=== PATIENT | female | born 1965 ===

== ENCOUNTER 2017-07-19 06:03 | Day surgery (SDC) | payer OTHER ==
[2017-07-11 09:39] VITALS: BMI 28.5
[2017-07-19] MEDS ORDERED: Lactated Ringer's 1,000 ML IV ONE (07:10)
[2017-07-19] MEDS ORDERED: ePHEDrine 50 mg/ml Inj ONE (07:15)
[2017-07-19] MEDS ORDERED: Propofol 10 mg/ml Inj (20 ML) ONE (07:15)
[2017-07-19] MEDS ORDERED: Rocuronium 10 mg/ml (5 ml) ONE (07:15)
[2017-07-19] MEDS ORDERED: Midazolam 2 MG/2 ML VIAL ONE (07:15)
[2017-07-19] MEDS ORDERED: Succinylcholine 200 mg/10 ml Inj IV ONE (07:16)
[2017-07-19] MEDS ORDERED: Lidocaine 2% MPF (5 ml) Inj ONE (07:16)
[2017-07-19] MEDS ORDERED: Phenylephrine 10 mg/ml Inj ONE (07:16)
[2017-07-19] MEDS ORDERED: Desflurane Inhalation Anesthetic Liq (240 ml) ONE (07:29)
[2017-07-19] MEDS ORDERED: ceFAZolin IV 1 gm in Dextrose 1 GM/50 ML BAG IVPB ONE ×2 (07:47→08:22)
[2017-07-19] MEDS ORDERED: Lidocaine 2% w Epi 1:100,000 Inj IJ ONE (07:47)
[2017-07-19] MEDS ORDERED: Morphine 1 mg/ml preservative-free Inj(Duramorph) ONE (09:33)
[2017-07-19] MEDS ORDERED: Sodium Chloride 0.45% 1,000 ML IV ONE (09:50)
--- NOTE | 2017-07-19 10:23 | PCM.SURG1 ---
Surgeon's Initial Post Op Note - Surgeon's Notes Surgeon: Dung Fischer MD Blocker Automatic: Milan Mcnally MD; Laura Ragsdale PA-C Type of Anesthesia: General LMA Pre-Operative Diagnosis: Right knee ACL tear Operative Findings: see op report Post-Operative Diagnosis: Same as pre-op dx Operation Performed: Right knee arthroscopy, ACL Reconstruction w/allograft Specimen/Specimens Removed: none Estimated Blood Loss: EBL {In ML}: 15 Date of Surgery/Procedure: 07/19/17 Time of Surgery/Procedure: 15:00
[2017-07-19] MEDS ORDERED: HYDROmorphone 0.5 mg/0.5 ml ISec IVP PRN (10:24)
[2017-07-19] MEDS ORDERED: Oxycodone/Acetaminophen 5/325 mg Tab PO PRN (10:25)
[2017-07-19] MEDS: HYDROmorphone 0.5 mg/0.5 ml ISec IVP PRN ×2 (10:55→11:15)
[2017-07-19 12:45] VITALS: RESP 18
[2017-07-19] MEDS ORDERED: Dexamethasone 4 mg/1 ml IM ONE (14:16)
[2017-07-19] MEDS ORDERED: Dexamethasone 4 MG in Sodium Chloride 0.9% 50 ML IV ONE (14:20)
[2017-07-19] MEDS ORDERED: Dexamethasone 4 mg/1 ml IVP ONE (14:41)
--- NOTE | 2017-07-19 15:06 | OP ---
PROCEDURE DATE: 07/19/2017 ATTENDING PHYSICIAN: Dung Fischer MD. MEDICATION TECH: Milan Mcnally MD. PREOPERATIVE DIAGNOSES: 1. Right knee complete anterior cruciate ligament tear. 2. Synovitis. 3. Effusion. POSTOPERATIVE DIAGNOSES: 1. Right knee tri-compartmental synovitis. 2. Complete anterior cruciate ligament tear. 3. Tear of the posterior horn medial meniscus. 4. Anterior patellofemoral adhesions. 5. Grade 2 chondromalacia of the trochlea. PROCEDURES: 1. Right knee arthroscopy with all-inside anterior cruciate ligament reconstruction using Allograft. 2. Partial meniscectomy of medial meniscus. 3. Major synovectomy of all 3 compartments. 4. Chondroplasty of the trochlea. 5. Anterior patellofemoral adhesions. ESTIMATED BLOOD LOSS: 10 mL. SPECIMENS: None. CLOSURE: Primary. FLUIDS: See anesthesia sheet. COMPLICATIONS: None. INDICATIONS: After failing a course of nonoperative therapy, the patient elected to undergo the above procedure. In the office, the risks and possible complications of knee arthroscopy were discussed in detail with the patient. These risks include, but are not limited to continued pain, lack of motion, infection, vascular injury, DVT/PE, nerve injury including peroneal nerve dysfunction, reflex sympathetic dystrophy, compartment syndrome, unforeseen medical and/or anesthesia complications, limb loss, and even . The patient expressed an understanding of the risks and possible benefits of the procedure, and is also aware of the alternatives to surgery. An informed consent was obtained, and was checked immediately preop. The patient was correctly identified in the holding area and the right knee was marked with the surgeon's initials. The patient was transported to the operating room and placed in the supine position, general anesthesia was obtained. A preoperative orthopedic exam revealed effusion of 1+, range of motion of 0 to 110, grade 2B Greer test, posterior anterior drawer test. The lower extremity was prepped and draped in the standard fashion, and the thigh was placed in an arthroscopic leg walter. A well-padded tourniquet was applied to the patient's thigh. Timeout was completed confirming the correct operative site. Esmarch was used to exsanguinate the leg and tourniquet was inflated to 300 mmHg. A standard anterolateral viewing portals were made with a #11 blade after subdermal 1% lidocaine with epinephrine injection. The knee was distended with normal saline and epinephrine in a 1:1,000,000 mixture, at an initial pressure of 35 mmHg. The arthroscope was inserted from the anterolateral portal and moved into the medial compartment. Next, the anteromedial working portal was made with spinal needle localization. The arthroscopic probe was inserted, and all compartments of the knee were sequentially visualized. FINDINGS: Arthroscopic examination of the knee revealed: 1. Complete ACL tear. 2. Complete major synovitis of all 3 compartments. 3. Tear of the posterior horn medial meniscus. 4. Grade 2 chondromalacia of the patella. 5. Anterior patellofemoral adhesions. ACL and PCL were examined and showed a complete ACL tear. The patient had elected to proceed with use of Allograft for ACL reconstruction. The graft was opened and thawed on the back table. Quality of allograft was assessed and was found to satisfactory for use. It was prepared and tensioned in standard manner for later use in ACL reconstruction. ACL reconstruction was performed using all-inside technique. The ACL stump was debrided and removed from the lateral femoral condyle and tibial insertion using a motorized shaver and the anatomic footprint was identified for drilling of femoral and tibial tunnels. We utilized accessory anteromedial portal to place an anatomic femoral tunnel. An [id number] guide was used to drill the Beath pin into the lateral femoral condyle and the positioning of the Beath was critically assessed before proceeding to the drilling of the tunnel. Then using the low profile reamer, a 10 x 25 mm femoral tunnel was drilled in its near anatomic position. Next, using the tibial guide, the anatomic footprint was identified and a flip-cutter pin was drilled for tibial tunnel. Using flip-cutter, tibial tunnel was drilled in retrograde manner. For graft passage, sutures were used and the graft was passed from anatomic portal into the femoral tunnel. For femoral fixation, we utilized metal cortical button. The cortical button was flipped on the far cortex of the femur, the graft was pulled into the femoral tunnel using the loose suture and its secure fixation was confirmed by pulling on the graft. Using the passing sutures, graft was pulled into the tibial tunnel. The cortical button was used for tibial fixation. Graft was tensioned with knee in 30 degrees of flexion, axial load, and slight posterior drawer. The knee was taken through range of motion. The patient had nearly full range of motion and stable Greer test. The camera was placed into the joint and it was noted that there was full extension without any impingement. The motorized shaver was used to mechanically debride the loose, fibrillated and fragmented chondral edges of the trochlea to a stable border. Extreme care was taken to not disrupt the adjacent chondral surface. The edges of injured chondral area were probed to ensure stability after the shaver was withdrawn from the knee. The motorized shaver was used to perform a synovectomy of the medial, lateral, and patellofemoral compartments. The hypertrophic synovium was resected with minimal bleeding. No synovial incarceration was noted after synovectomy when the knee was put through a full passive range of motion. Due to injuries to the patellofemoral region resulting in organized scar and suprapatellar adhesions, a decision was made to perform and anterior interval release to decrease the patellofemoral joint reaction force and relieve pressures over the patella and trochlea. The synovectomy was carried over to the suprapatellar pouch and an anterior interval release was performed over the anterior compartment and the suprapatellar pouch with the motorized shaver. The anterior fat pad was released and debulked during this procedure. The inflow was shut off and the area checked for hemostasis. Small bleeders were coagulated with the radiofrequency device. A total of 10 mL of 0.25% Marcaine was then injected into the knee with infusion into each portal as well for postoperative analgesia. Post operatively, the patient will be weightbearing as tolerated in a Cass range of motion brace with crutches and will utilize my appropriate post arthroscopy protected rehab protocol. The patient will be started on straight leg raising and quadriceps setting exercises in the recovery room. During this procedure, I was assisted by Dr. Milan Mcnally, who assisted in positioning the patient on the operating room table as well as transferring the patient from the operating room table to the recovery room stretcher. In addition, Dr. Milan Mcnally assisted me during the actual operative procedure by positioning the patient's extremity to allow for easier arthroscopic access to all areas of the joint. The presence of Dr. Milan Mcnally as my operative assistant press operator, was medically necessary to ensure the utmost safety of the patient in the pre, intra-, and postoperative periods. Dung Fischer MD [facility] # [id number]
[2017-07-19 17:59] VITALS: BP 102/50; PULSE 76; TEMP 98; O2SAT 98
== END 2017-07-19 18:04 | disposition home or self-care (01) ==
LOC: H.OPSURG 06:03
PROVIDERS: ATTEND Orthopaedic Surgery
DX: M65.861 Other synovitis and tenosynovitis, right lower leg (principal); S83.511A Sprain of anterior cruciate ligament of right knee, initial encounter; X58.XXXA Exposure to other specified factors, initial encounter; M94.261 Chondromalacia, right knee
CPT/HCPCS: 29876; 29880; 97116; 97161; C1713; G8978; G8979; G8980; J0330; J0690; J1100; J1170; J1885; J2250; J2270; J2370; J2405; J2704; J2765; J3010; J7030; J7120

== ENCOUNTER 2017-07-22 14:33 | Emergency (ER) | payer OTHER ==
[2017-07-22 14:33] VITALS: BMI 28.5
[2017-07-22 15:03] VITALS: BP 157/72; PULSE 92; RESP 18; TEMP 98.2; O2SAT 98
--- NOTE | 2017-07-22 15:31 | ED PDOC ---
HPI: Female Pain Chief Complaint (Provider): Blood in the urine History Per: Patient, Family History/Exam Limitations: no limitations Onset/Duration Of Symptoms: Days (1) Current Symptoms Are (Timing): Still Present Severity: Moderate Associated Symptoms: Nausea. denies: Fever, Diarrhea, Back Pain, Chest Pain, Urinary Symptoms Additional History Per: Patient Additional Complaint(s): 51 y/o F with no significant PMhx presents to ED with family with c/o noticing blood in the urine and after she wipes herself. Patient is concerned because she underwent R/knee ligament tear repair 3 days ago. She states that the first episode happened Yesterday and she called her Surgeon's office(Dr Fischer) and was told to stop taking Codeine for pain and was given a different pain med. Today she got in contact with the PA at Dr Fischer's office and was advised to come to ED for blood work up. Patient denies Hx of blood disorders, medication allergies. She just found out after coming to ED that the new Rx med was aspirin. Patient had her normal menstrual period from Otc to Jun 08 last month and has no Hx of irregular periods. Denies fever, bruises or other skin lesions. Patient denies taking any other medications at this time. C/O nausea since Sx and eating poorly. Crmaping pelvic pain since yesterday, mild. Has been drinking plenty of water. Denies dysuria, lower back pain, CP, SOB or palpitations. Last Menstral Period: 05/31/17 <Ajith Hernandez - Last Filed: 07/22/17 17:34> <Brittney Rangel - Last Filed: 07/23/17 15:32> Time Seen by Provider: 07/22/17 15:06 Chief Complaint (Nursing): GI Problem Supervising Attending Note - Supervising Attending Note The Documented history was done by the: Physician Refractory Technician, Attending Physician The documented physical exam was done by the: Physician Refractory Technician, Attending Physician - Attestation: I have personally seen and examined this patient.: Yes I have fully participated in the care of the patient.: Yes I have reviewed all pertinent clinical information, including history, physical exam and plan: Yes - Notes: Notes:: Urine c/w possible UTI, but also can be uterine bleeding. Pt reports that she now has more vaginal bleeding. She has a h/o UTI and that keflex usually treats it. Has persistent headache. Tylenol and toradol and IVF continued. <Brittney Rangel - Last Filed: 07/23/17 15:32> Past Medical History Vital Signs: Last Vital Signs Temp 98.2 F 07/22/17 14:55 Pulse 92 H 07/22/17 14:55 Resp 18 07/22/17 14:55 BP 157/72 H 07/22/17 14:55 Pulse Ox 98 07/22/17 14:55 - Medical History PMH: No Chronic Diseases, Fractures - Surgical History Other surgeries: Ligament tear. Abd Cyst. - Family History Family History: States: No Known Family Hx - Living Arrangements Living Arrangements: With Family - Social History Current smoker - smoking cessation education provided: No <Ajith Hernandez - Last Filed: 07/22/17 17:34> Vital Signs: Last Vital Signs Temp 98.2 F 07/22/17 14:55 Pulse 92 H 07/22/17 14:55 Resp 18 07/22/17 14:55 BP 157/72 H 07/22/17 14:55 Pulse Ox 98 07/22/17 17:35 <Brittney Rangel - Last Filed: 07/23/17 15:32> - Home Medications Home Medications: Ambulatory Orders Medication Instructions Recorded Docusate [Colace] 100 mg PO DAILY PRN 07/19/17 Ondansetron HCl [Zofran] 8 mg PO DAILY PRN 07/19/17 Naproxen [Naprosyn] 1 tab PO BID PRN #60 tab 07/22/17 Tramadol HCl [Ultram] 50 mg PO Q8 PRN #15 tablet 07/22/17 - Allergies Allergies/Adverse Reactions: Allergies Allergy/AdvReac Type Severity Reaction Status Date / Time Iodinated Contrast- Oral and Allergy SHORTNESS Verified 07/19/17 06:42 IV Dye OF BREATH nitrofurantoin Allergy RASH Verified 07/19/17 06:42 [From Macrobid] Review of Systems ROS Statement: Except As Marked, All Systems Reviewed And Found Negative Gastrointestinal: Positive for: Nausea Genitourinary Female: Positive for: Hematuria (questionable), Vaginal Bleeding, Pelvic Pain (crampy) Musculoskeletal: Positive for: Other (R/knee pain) <Ajith Hernandez - Last Filed: 07/22/17 17:34> Physical Exam - Reviewed Vital Signs Reviewed: Yes - Physical Exam Appears: Positive for: Non-toxic, No Acute Distress Head Exam: Positive for: NORMAL INSPECTION Skin: Positive for: Normal Color, Warm Eye Exam: Positive for: PERRL Neck: Positive for: Supple Cardiovascular/Chest: Positive for: Regular Rate, Rhythm. Negative for: Gallop , Murmur Respiratory: Positive for: Normal Breath Sounds. Negative for: Crackles, Rales , Wheezing Gastrointestinal/Abdominal: Positive for: Soft. Negative for: Tenderness, Guarding, Rebound Back: Negative for: L CVA Tenderness, R CVA Tenderness Extremity: Positive for: Capillary Refill (normal), Other (R/LE covered with dressing, abigail wrap and cast. No signs of neurovascular compromise on affected LE ). Negative for: Calf Tenderness Neurologic/Psych: Positive for: Alert, Oriented. Negative for: Motor/Sensory Deficits <Ajith Hernandez - Last Filed: 07/22/17 17:34> - Laboratory Results Result Diagrams: 07/22/17 16:20 07/22/17 16:20 - ECG O2 Sat by Pulse Oximetry: 98 <Ajith Hernandez - Last Filed: 07/22/17 17:34> - Laboratory Results Result Diagrams: 07/22/17 16:20 07/22/17 16:20 <Brittney Rangel - Last Filed: 07/23/17 15:32> Medical Decision Making Medical Decision Making: Hematuria VS Vaginal Bleeding CBC, CMP, Coags, UA Nausea/Post-op ligament tear Zofran IV once CMP, CBC, COags received and reviewed, unremarkable Awaiting UA <Ajith Hernandez - Last Filed: 07/22/17 17:34> Disposition - Disposition Disposition Time: 17:30 Patient Signed Over To: Brittney Rangel (Pending UA) <Ajith Hernandez - Last Filed: 07/22/17 17:34> - Disposition Disposition: Routine/Home <Brittney Rangel - Last Filed: 07/23/17 15:32> - Clinical Impression Clinical Impression: Hematuria, Vaginal bleeding, UTI (urinary tract infection), Headache - Disposition Referrals: Dung Fischer MD [Staff Provider] - (PLEASE FOLLOW UP WITH DR FISCHER AND YOU REGULAR DOCTOR ON TUESDAY) Condition: IMPROVED Prescriptions: Naproxen [Naprosyn] 1 tab PO BID PRN #60 tab PRN Reason: Pain Tramadol HCl [Ultram] 50 mg PO Q8 PRN #15 tablet PRN Reason: SEVERE PAIN ONLY Instructions: Urinary Tract Infection in Women (ED), Pain Management After Surgery (GEN) Forms: [employer] ([place])
[2017-07-22] MEDS ORDERED: Sodium Chloride 0.9% 500 ML IV STA (16:18)
[2017-07-22 16:30] LABS: BASO % 0.6 % (0.0-2.0); EOS # 0.1 K/uL (0.0-0.7); EOS % 0.9 % (0.0-4.0); HEMATOCRIT 37.9 % (34.0-47.0); LYMPH # 1.3 K/uL (1.0-4.3); LYMPH % 15.4 % (20.0-40.0); MEAN CELL VOLUME 93.3 fl (81.0-99.0); MEAN CORPUSCULAR HGB CONC 33.2 g/dL (33.0-37.0); MEAN PLATELET VOLUME 9.4 fl (7.2-11.7); MONO # 0.7 K/uL (0.0-0.8); MONO % 7.8 % (0.0-10.0); NEUT # 6.3 K/uL (1.8-7.0); NEUT % 75.3 % (50.0-75.0); RED CELL DISTRIBUTION WIDTH 13.1 % (11.5-14.5); WHITE BLOOD COUNT 8.4 K/uL (4.8-10.8)
[2017-07-22 16:36] LABS: PARTIAL THROMBOPLASTIN TIME 30.7 Seconds (25.6-37.1)
[2017-07-22 16:52] LABS: ALB/GLOB RATIO 1.1 (1.0-2.1); ALKALINE PHOSPHATASE 68 U/L (38-126); ALT/SGPT 31 U/L (9-52); AST/SGOT 19 U/L (14-36); BILIRUBIN,TOTAL 0.6 mg/dl (0.2-1.3); BLOOD UREA NITROGEN 4 mg/dl (7-17); CALCIUM 8.7 mg/dL (8.4-10.2); CARBON DIOXIDE 25 mmol/L (22-30); CHLORIDE 106 mmol/L (98-107); GFR AFRICAN-AMERICAN > 60; GLUCOSE,RANDOM 100 mg/dL (65-105); POTASSIUM 3.5 MMOL/L (3.6-5.0); SODIUM 141 mmol/l (132-148); TOTAL PROTEIN 7.2 G/DL (6.3-8.2)
[2017-07-22 17:37] LABS: RBC URINE 446 /hpf (0-3); URINE BACTERIA OCC (<OCC); URINE BILIRUBIN NEGATIVE (NEGATIVE); URINE BLOOD LARGE (NEGATIVE); URINE COLOR RED (YELLOW); URINE GLUCOSE (UA) NEG (Normal); URINE KETONE 20 mg/dL (NEGATIVE); URINE LEUKOCYTE ESTERASE TRACE Leu/uL (Negative); URINE PROTEIN 100 mg/dL (NEGATIVE); URINE UROBILINOGEN 0.2-1.0 mg/dL (0.2-1.0); WBC URINE 37 /hpf (0-5)
[2017-07-22] MEDS ORDERED: K-Lyte 25meq EF Tab PO ONE ×2 (18:09→18:41)
[2017-07-22] MEDS ORDERED: Dextrose 5%/0.9% NS 1,000 ML IV SCH (19:00)
[2017-07-22] MEDS ORDERED: cefTRIAXone IV 1 gm in Dextros 50 ML IVPB STA (19:20)
== END 2017-07-22 22:00 | disposition home or self-care (01) ==
LOC: H.ER 14:33
DX: N39.0 Urinary tract infection, site not specified (principal); N93.9 Abnormal uterine and vaginal bleeding, unspecified; R51 Headache
CPT/HCPCS: 80053; 81003; 81025; 85025; 85610; 85730; 86850; 86900; 87086; 96361; 96374; 96375; 99284; J0696; J1885; J2405; J7040; J7042